=== PATIENT | male | born 1975 | race Asian ===

== ENCOUNTER 2018-04-13 17:32 | Emergency (ER) | payer SELFPAY ==
[~2018-04-13] VITALS: Ht 167.6 cm; Wt 78.0 kg
[2018-04-13 17:35] VITALS: BP 130/97
== END 2018-04-13 19:35 | disposition left against medical advice (07) ==
LOC: ER 17:32
DX: Z53.21 Procedure and treatment not carried out due to patient leaving prior to being seen by health care provider (principal)